=== PATIENT | male | born 1945 | race Caucasian/White ===

== ENCOUNTER → 2018-04-19 | Outpatient (CLI) | payer MEDICARE, OTHER ==
--- NOTE | 2018-04-19 17:36 | CONS ---
CONSULTATION REASON FOR CONSULTATION: "Hits, acts out on dreams." This is a 72-year-old male patient who is coming in accompanied by his . The patient is unaware of any major issues with his sleep; however, his tells me that the patient has been hitting and acting out on his dreams, he does not sleep well and he feels tired a lot. These problems started after his bypass surgery that was done back in July of 2017. Since then, his condition has gotten worse. He does have obvious cognitive impairments. He is having issues also with memory, essentially short- term memory. Unable to do complex calculations or analytic thinking, and his higher cognitive functions are gradually getting worse. His sleep is fragmented. It has gotten to the point where his is not sleeping in the same bedroom with him. The patient acts out and punches and swings, and at times jerks and shakes. This typically happens around 3 to 4 a.m. The patient goes to bed around 10 p.m. No major snoring. No head trauma. No substance abuse. No history of Parkinson's disease. No resting tremors. The patient has not caused any personal injury, nor has he inflicted any injury to his partner. No history of periodic limb movements or restless legs syndrome. No chest pain. No palpitation. No heartburn. No recent weight gain or weight loss. PAST MEDICAL HISTORY: 1. Diabetes mellitus. 2. Coronary artery disease. 3. Hyperlipidemia. 4. Dementia. PAST SURGICAL HISTORY: Past surgical history includes: 1. Coronary artery bypass surgery back in 2018. 2. Cataract removed in 2018. 3. Carotid artery stents. DRUG ALLERGIES: NOT KNOWN. OUTPATIENT MEDICATIONS: Outpatient medications include: 1. Metoprolol 25 mg half a tablet 1 tablet a day. 2. Plavix 75 a day. 3. Lipitor 40 mg p.o. daily. SOCIAL HISTORY: The patient is a nonsmoker. No history of alcoholism. No history of IV drugs. FAMILY HISTORY: Negative for any Parkinson's disease or dementia or sleep apnea. REVIEW OF SYSTEMS: Twelve-point review of systems was done. The patient has no history of psychiatric disorder. History of history of anxiety. No history of depression. No history of claustrophobia. No history of sexual dysfunction. No history of any seizure activity. No history of head trauma. No history of meningitis. No falls. No difficulty with balance and coordination. No grinding of the teeth. No restlessness in the lower extremities. No anxiety or panic attacks. No palpitation. No heartburn. No other complaints otherwise. PHYSICAL EXAMINATION: BP is 120/82, pulse 78, respirations 16, temperature 97.3, saturation 92% on room air. Neck size in 15-1/2 inches. Height is 5 feet 3 inches. Weight is 170. BMI 30.1. GENERAL APPEARANCE: Calm, comfortable. Head is atraumatic, normocephalic. NECK: Supple. No JVD. No goiter or neck masses. LUNGS: Clear to auscultation. HEART: Heart sounds are regular rate and rhythm. Normal S1, S2. No S3, S4. No murmurs. ABDOMEN: Soft, nontender. No organomegaly. EXTREMITIES: No edema. No cyanosis or clubbing at this point. Neurologically the patient has signs of dementia. He has undergone a mini-mental status exam via neurologist and he has performed poorly. 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 In this particular patient it has become at times violent, without causing any potential injuries to himself or his partner. He may have an underlying Alzheimer's dementia, based on the progressive memory loss and cognitive impairment that the patient is experiencing. No signs or symptoms of obstructive sleep apnea. No other comorbidities evident. 2. Diabetes mellitus. 3. Coronary artery disease. 4. Hyperlipidemia. 5. Dementia. PLAN: 1. Discussed the findings with the patient and his . 2. Important for this patient to follow up with Neurology regarding his dementia. 3. In regard to his REM behavior disorder, would suggest making the bedroom environment quite safe and remove any other harmful objects or glass material that could potentially cause injuries. The patient is having dream enactment and he is also performing complex behaviors that parallel dream context, such as talking, flailing, punching and kicking. The patient will be started on melatonin, which has demonstrated favorable safety and therapeutic profile over Klonopin. He will be started on 6 mg of melatonin for now with the consideration of increasing the dose up of 10 mg if he continues to have the same symptoms. Implement good sleep hygiene measures. Follow up with Neurology and see me back in 6 months' time for followup. MMODL / IJN: [id number] /
== END ==
LOC: SLEEP 14:44
PROVIDERS: ATTEND Internal Medicine Critical Care Medicine
DX: G47.52 REM sleep behavior disorder (principal); E11.9 Type 2 diabetes mellitus without complications; I25.10 Atherosclerotic heart disease of native coronary artery without angina pectoris; E78.5 Hyperlipidemia, unspecified; F03.90 Unspecified dementia, unspecified severity, without behavioral disturbance, psychotic disturbance, mood disturbance, and anxiety; Z79.899 Other long term (current) drug therapy; Z79.02 Long term (current) use of antithrombotics/antiplatelets
CPT/HCPCS: 99211